=== PATIENT | male | born 1960 | race Caucasian/White ===

== ENCOUNTER → 2019-10-07 | Outpatient (CLI) | payer OTHER ==
--- NOTE | 2019-10-07 15:35 | Diagnostic Imaging Report ---
PROCEDURE: MRI lumbar spine. TECHNIQUE: Multiplanar, multisequence MRI of the lumbar spine was performed without contrast. INDICATION: Low back pain. COMPARISON: None. FINDINGS: Alignment of the lumbar spine is normal without spondylolisthesis. Vertebral body heights are preserved. There is disc height loss at L5-S1. The conus terminates in appropriate position. There is a right renal cyst measuring up to 3.6 cm, which appears simple. Soft tissues about the lumbar spine are unremarkable. No acute fracture is seen. T12-L1: No significant disc bulge. No spinal canal or foraminal stenosis. L1-L2: No significant disc bulge. No spinal canal or foraminal stenosis. L2-L3: No significant disc bulge. No spinal canal or foraminal stenosis. L3-L4: Mild disc bulge. No spinal canal stenosis. Mild right foraminal narrowing. No left foraminal stenosis. L4-L5: Mild disc bulge and facet arthropathy with ligamentous infolding. No spinal canal stenosis. Minimal bilateral foraminal narrowing. L5-S1: Diffuse disc bulge with mild facet arthropathy. No spinal canal stenosis. [id number] right and moderate left foraminal stenosis. IMPRESSION: 1. 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 There is no spinal canal stenosis. Dictated by: Dictated on workstation # [id number]
== END ==
LOC: RAD 13:56
PROVIDERS: ATTEND Nurse Practitioner
DX: M51.36 Other intervertebral disc degeneration, lumbar region (principal); M54.16 Radiculopathy, lumbar region; M48.062 Spinal stenosis, lumbar region with neurogenic claudication; M47.897 Other spondylosis, lumbosacral region
CPT/HCPCS: 72148